=== PATIENT | female | born 1955 | race Caucasian/White ===

== ENCOUNTER 2018-04-16 19:38 | Emergency (ER) | payer OTHER, MEDICAID ==
[2018-04-16 20:30] LABS: ADD MAN DIFF? NO
[2018-04-16 20:31] LABS: WHITE BLOOD COUNT 5.6 10^3/ul (4.8-10.8)
[2018-04-16 20:31] LABS: ABNORMAL IP MESSAGE 1; BASOPHILS % 0.5 % (0.0-2.0); EOSINOPHILS # 0.1 10^3/ul (0.0-0.5); EOSINOPHILS % 2.3 % (0.0-7.0); HEMATOCRIT 37.8 % (37.0-47.0); HEMOGLOBIN 12.7 g/dl (12.0-16.0); LYMPHOCYTES # 1.8 10^3/ul (0.8-2.9); LYMPHOCYTES % 32.1 % (15.0-51.0); MEAN CORPUSCULAR HEMOGLOBIN 30.7 pg (29.0-33.0); MEAN CORPUSCULAR HGB CONC 33.6 g/dl (32.0-37.0); MEAN CORPUSCULAR VOLUME 91.3 fl (82.0-101.0); MEAN PLATELET VOLUME 10.7 fl (7.4-10.4); MONOCYTE # 0.5 10^3/ul (0.3-0.9); MONOCYTES % 8.8 % (0.0-11.0); NEUTROPHIL # 3.1 10^3/ul (1.6-7.5); NEUTROPHILS % 55.9 % (39.0-77.0); PLATELET COUNT 93 10^3/UL (140-415); RED BLOOD COUNT 4.14 10^6/ul (4.20-5.40); RED CELL DISTRIBUTION WIDTH 13.6 % (11.5-14.5)
[2018-04-16 20:34] LABS: POSITIVE DIFF @See below
[2018-04-16] MEDS: ONDANSETRON 4 MG INJ IV (20:37)
[2018-04-16] MEDS: morphine 4 MG/ML VIAL IV (20:38)
[2018-04-16 20:48] LABS: ALANINE AMINOTRANSFERASE 42 IU/L (13-69); ALBUMIN/GLOBULIN RATIO 0.93; ALKALINE PHOSPHATASE 89 IU/L (42-121); ANION GAP 9 (5-13); ASPARTATE AMINO TRANSFERASE 45 IU/L (15-46); BILIRUBIN,INDIRECT 0.5 mg/dl (0-1.1); BILIRUBIN,TOTAL 0.5 mg/dl (0.2-1.3); BLOOD UREA NITROGEN 10 mg/dl (7-20); CALCIUM 8.7 mg/dl (8.4-10.2); CARBON DIOXIDE 28 mmol/L (21-31); CHLORIDE 106 mmol/L (97-110); CREATININE 0.57 mg/dl (0.44-1.00); Estimated GFR > 60 mL/min (>60); GLUCOSE 143 mg/dl (70-220); LIPASE 252 U/L (23-300); POTASSIUM 3.7 mmol/L (3.5-5.1); SODIUM 143 mmol/L (135-144); TOTAL PROTEIN 8.3 g/dl (6.1-8.1)
[2018-04-16 21:00] LABS: TROPONIN-I < 0.012 ng/ml (0.000-0.120)
[2018-04-16 21:12] LABS: ADD UMIC YES; UR ASCORBIC ACID NEGATIVE (NEGATIVE); UR BACTERIA FEW /HPF (NONE SEEN); UR BILIRUBIN (Dip) NEGATIVE (NEGATIVE); UR BLOOD (Dip) 1+ mg/dL (NEGATIVE); UR CALCIUM OXALATE CRYSTAL MANY /HPF (NONE SEEN); UR CLARITY SLIGHTLY CLOUDY (CLEAR); UR COLOR YELLOW (YELLOW); UR GLUCOSE (Dip) NEGATIVE (NEGATIVE); UR KETONES (Dip) NEGATIVE (NEGATIVE); UR LEUKOCYTE ESTERASE (Dip) NEGATIVE Leu/ul (NEGATIVE); UR MUCUS FEW /HPF (NONE SEEN); UR NITRITE (Dip) NEGATIVE (NEGATIVE); UR RBC 9 /HPF (0-5); UR SQUAMOUS EPITHELIAL CELL FEW /HPF (FEW); UR TOTAL PROTEIN (Dip) 1+ mg/dl (NEGATIVE); UR UROBILINOGEN (Dip) 2+ mg/dL (NEGATIVE); UR WBC 8 /HPF (0-5)
== END 2018-04-16 23:50 | disposition home or self-care (01) ==
LOC: E/R 19:38
DX: R10.84 Generalized abdominal pain (principal); M54.5 Low back pain; I10 Essential (primary) hypertension; Z79.82 Long term (current) use of aspirin
CPT/HCPCS: 36415; 74176; 80053; 81001; 83690; 84484; 85025; 93005; 96374; 96375; 99285-25

== ENCOUNTER 2018-07-18 11:49 | Emergency (ER) | payer BC, MEDICAID ==
[2018-07-18] MEDS: HYDROmorphONE 1 MG/ML SYG IV (13:08)
[2018-07-18] MEDS: ONDANSETRON 4 MG INJ IV (13:08)
[2018-07-18 13:15] LABS: ADD MAN DIFF? NO
[2018-07-18 13:23] LABS: WHITE BLOOD COUNT 4.9 10^3/ul (4.8-10.8)
[2018-07-18 13:23] LABS: ABNORMAL IP MESSAGE 1; BASOPHILS % 0.8 % (0.0-2.0); EOSINOPHILS # 0.1 10^3/ul (0.0-0.5); EOSINOPHILS % 1.8 % (0.0-7.0); HEMATOCRIT 40.2 % (37.0-47.0); HEMOGLOBIN 13.5 g/dl (12.0-16.0); LYMPHOCYTES # 1.9 10^3/ul (0.8-2.9); LYMPHOCYTES % 37.7 % (15.0-51.0); MEAN CORPUSCULAR HEMOGLOBIN 31.2 pg (29.0-33.0); MEAN CORPUSCULAR HGB CONC 33.6 g/dl (32.0-37.0); MEAN CORPUSCULAR VOLUME 92.8 fl (82.0-101.0); MEAN PLATELET VOLUME 11.6 fl (7.4-10.4); MONOCYTE # 0.5 10^3/ul (0.3-0.9); MONOCYTES % 9.5 % (0.0-11.0); NEUTROPHIL # 2.5 10^3/ul (1.6-7.5); NEUTROPHILS % 49.8 % (39.0-77.0); PLATELET COUNT 70 10^3/UL (140-415); RED BLOOD COUNT 4.33 10^6/ul (4.20-5.40); RED CELL DISTRIBUTION WIDTH 13.8 % (11.5-14.5)
[2018-07-18 13:24] LABS: POSITIVE DIFF @See below
[2018-07-18 13:39] LABS: ALANINE AMINOTRANSFERASE 50 IU/L (13-69); ALBUMIN 4.1 g/dl (3.3-4.9); ALBUMIN/GLOBULIN RATIO 0.87; ALKALINE PHOSPHATASE 94 IU/L (42-121); ANION GAP 10 (5-13); ASPARTATE AMINO TRANSFERASE 63 IU/L (15-46); BILIRUBIN,INDIRECT 0.5 mg/dl (0-1.1); BILIRUBIN,TOTAL 0.5 mg/dl (0.2-1.3); BLOOD UREA NITROGEN 11 mg/dl (7-20); CALCIUM 9.2 mg/dl (8.4-10.2); CARBON DIOXIDE 27 mmol/L (21-31); CHLORIDE 107 mmol/L (97-110); CREATININE 0.66 mg/dl (0.44-1.00); Estimated GFR > 60 mL/min (>60); GLUCOSE 93 mg/dl (70-220); LIPASE 330 U/L (23-300); POTASSIUM 3.7 mmol/L (3.5-5.1); SODIUM 144 mmol/L (135-144); TOTAL PROTEIN 8.8 g/dl (6.1-8.1)
== END 2018-07-18 16:44 | disposition home or self-care (01) ==
LOC: E/R 11:49
DX: K80.50 Calculus of bile duct without cholangitis or cholecystitis without obstruction (principal); I10 Essential (primary) hypertension
CPT/HCPCS: 36415; 76705; 80053; 83690; 85025; 96374; 96375; 99285-25

== ENCOUNTER 2018-09-09 07:47 | Emergency (ER) | payer OTHER ==
[2018-09-09] MEDS: ONDANSETRON (ODT) 4 MG TAB ODT (09:25)
[2018-09-09] MEDS: KETOROLAC 30 MG INJ IM (09:26)
== END 2018-09-09 10:36 | disposition home or self-care (01) ==
LOC: FTE 10:36
DX: J06.9 Acute upper respiratory infection, unspecified (principal); I10 Essential (primary) hypertension; E11.9 Type 2 diabetes mellitus without complications; Z79.84 Long term (current) use of oral hypoglycemic drugs
CPT/HCPCS: 96372; 99284-25

== ENCOUNTER 2018-12-23 06:56 | Observation (INO) | payer OTHER ==
[2018-12-23 07:34] LABS: ADD MAN DIFF? NO
[2018-12-23] MEDS: ASPIRIN 325 MG TAB PO (07:37)
[2018-12-23] MEDS: NITROGLYCERIN (SL) 0.4 MG TAB SL ×2 (07:37→19:57)
[2018-12-23 07:39] LABS: WHITE BLOOD COUNT 6.4 10^3/ul (4.8-10.8)
[2018-12-23 07:39] LABS: ABNORMAL IP MESSAGE 1; BASOPHIL # 0.1 10^3/ul (0.0-0.1); BASOPHILS % 0.8 % (0.0-2.0); EOSINOPHILS # 0.2 10^3/ul (0.0-0.5); EOSINOPHILS % 2.5 % (0.0-7.0); HEMATOCRIT 41.3 % (37.0-47.0); HEMOGLOBIN 13.5 g/dl (12.0-16.0); LYMPHOCYTES % 32.1 % (15.0-51.0); MEAN CORPUSCULAR HEMOGLOBIN 30.8 pg (29.0-33.0); MEAN CORPUSCULAR HGB CONC 32.7 g/dl (32.0-37.0); MEAN CORPUSCULAR VOLUME 94.1 fl (82.0-101.0); MEAN PLATELET VOLUME 10.3 fl (7.4-10.4); MONOCYTE # 0.6 10^3/ul (0.3-0.9); MONOCYTES % 9.6 % (0.0-11.0); NEUTROPHIL # 3.5 10^3/ul (1.6-7.5); NEUTROPHILS % 54.5 % (39.0-77.0); PLATELET COUNT 80 10^3/UL (140-415); RED BLOOD COUNT 4.39 10^6/ul (4.20-5.40); RED CELL DISTRIBUTION WIDTH 13.9 % (11.5-14.5)
[2018-12-23 07:40] LABS: POSITIVE DIFF @See below
[2018-12-23 07:57] LABS: ALANINE AMINOTRANSFERASE 46 IU/L (13-69); ALBUMIN 3.9 g/dl (3.3-4.9); ALBUMIN/GLOBULIN RATIO 0.88; ALKALINE PHOSPHATASE 89 IU/L (42-121); ANION GAP 6 (5-13); ASPARTATE AMINO TRANSFERASE 49 IU/L (15-46); BILIRUBIN,INDIRECT 0.9 mg/dl (0-1.1); BILIRUBIN,TOTAL 0.9 mg/dl (0.2-1.3); BLOOD UREA NITROGEN 18 mg/dl (7-20); CALCIUM 9.2 mg/dl (8.4-10.2); CARBON DIOXIDE 28 mmol/L (21-31); CHLORIDE 108 mmol/L (97-110); CREATININE 0.58 mg/dl (0.44-1.00); Estimated GFR > 60 mL/min (>60); GLUCOSE 150 mg/dl (70-220); LIPASE 262 U/L (23-300); SODIUM 142 mmol/L (135-144); TOTAL PROTEIN 8.3 g/dl (6.1-8.1)
[2018-12-23 08:08] LABS: TROPONIN-I < 0.012 ng/ml (0.000-0.120)
[2018-12-23] MEDS ORDERED: DOCUSATE SODIUM 100 MG CAP PO (09:00)
[2018-12-23] MEDS ORDERED: ACETAMINOPHEN 325 MG TAB PO (09:00)
[2018-12-23] MEDS ORDERED: BISACODYL (EC) 5 MG TAB PO (09:00)
[2018-12-23] MEDS ORDERED: ONDANSETRON 4 MG INJ IV ×2 (09:00)
[2018-12-23] MEDS ORDERED: NACL 0.9% 3 ML SYG IV (09:00)
[2018-12-23] MEDS ORDERED: ZOLPIDEM 5 MG TAB PO (09:00)
[2018-12-23] MEDS ORDERED: HYDROCODONE/APAP (5/325) TAB PO (09:00)
[2018-12-23] MEDS: FAMOTIDINE 20 MG INJ IV ×2 (09:07→20:22)
[2018-12-23] MEDS: ENOXAPARIN 40 MG/0.4 ML SYG SC (09:08)
[2018-12-23 09:18] LABS: INR 1.08; PROTIME 14.1 Sec (11.9-14.9); PT RATIO 1.1
[2018-12-23] MEDS: morphine 2 MG INJ IV (12:05)
[2018-12-23 13:43] LABS: CREATINE KINASE 70 IU/L (23-200)
[2018-12-23 13:54] LABS: CK INDEX 0.8; CK-MB 0.57 ng/ml (0.0-2.4); TROPONIN-I < 0.012 ng/ml (0.000-0.120)
[2018-12-23] MEDS: ACETAMINOPHEN 325 MG TAB PO (19:58)
[2018-12-24] MEDS: morphine 2 MG INJ IV (01:51)
[2018-12-24 06:57] LABS: ADD MAN DIFF? NO
[2018-12-24 07:03] LABS: WHITE BLOOD COUNT 4.3 10^3/ul (4.8-10.8)
[2018-12-24 07:03] LABS: ABNORMAL IP MESSAGE 1; BASOPHILS % 0.5 % (0.0-2.0); EOSINOPHILS # 0.1 10^3/ul (0.0-0.5); EOSINOPHILS % 2.1 % (0.0-7.0); HEMATOCRIT 40.9 % (37.0-47.0); HEMOGLOBIN 13.4 g/dl (12.0-16.0); LYMPHOCYTES # 1.7 10^3/ul (0.8-2.9); LYMPHOCYTES % 38.5 % (15.0-51.0); MEAN CORPUSCULAR HEMOGLOBIN 30.7 pg (29.0-33.0); MEAN CORPUSCULAR HGB CONC 32.8 g/dl (32.0-37.0); MEAN CORPUSCULAR VOLUME 93.6 fl (82.0-101.0); MEAN PLATELET VOLUME 10.9 fl (7.4-10.4); MONOCYTE # 0.3 10^3/ul (0.3-0.9); MONOCYTES % 7.1 % (0.0-11.0); NEUTROPHIL # 2.2 10^3/ul (1.6-7.5); NEUTROPHILS % 51.3 % (39.0-77.0); PLATELET COUNT 69 10^3/UL (140-415); RED BLOOD COUNT 4.37 10^6/ul (4.20-5.40); RED CELL DISTRIBUTION WIDTH 13.7 % (11.5-14.5)
[2018-12-24 07:28] LABS: ALANINE AMINOTRANSFERASE 56 IU/L (13-69); ALBUMIN 3.6 g/dl (3.3-4.9); ALBUMIN/GLOBULIN RATIO 0.87; ALKALINE PHOSPHATASE 84 IU/L (42-121); ANION GAP 5 (5-13); ASPARTATE AMINO TRANSFERASE 69 IU/L (15-46); BLOOD UREA NITROGEN 17 mg/dl (7-20); CALCIUM 8.8 mg/dl (8.4-10.2); CARBON DIOXIDE 27 mmol/L (21-31); CHLORIDE 107 mmol/L (97-110); CHOL/HDL RATIO 3.2 RATIO; CHOLESTEROL 158 mg/dl (100-200); CREATININE 0.55 mg/dl (0.44-1.00); Estimated GFR > 60 mL/min (>60); GLUCOSE 117 mg/dl (70-220); HDL CHOLESTEROL 49 mg/dl (35-98); LDL CHOLESTEROL,CALCULATED 82 mg/dl; MAGNESIUM 1.8 mg/dl (1.7-2.5); POTASSIUM 3.9 mmol/L (3.5-5.1); SODIUM 139 mmol/L (135-144); TOTAL PROTEIN 7.7 g/dl (6.1-8.1); TRIGLYCERIDES 135 mg/dl (0-149)
[2018-12-24 07:31] LABS: TROPONIN-I < 0.012 ng/ml (0.000-0.120)
[2018-12-24 07:33] LABS: POSITIVE DIFF @See below
[2018-12-24 07:41] LABS: HEMOGLOBIN A1C 6.5 % (0-5.9)
[2018-12-24] MEDS: REGADENOSON 0.4 MG/5 ML SYG (10:00)
[2018-12-24] MEDS: FAMOTIDINE 20 MG INJ IV (13:14)
[2018-12-24] MEDS: AMLODIPINE 5 MG TAB PO (13:14)
[2018-12-24] MEDS: ASPIRIN (EC) 81 MG TAB PO (13:14)
[2018-12-24] MEDS: ENOXAPARIN 40 MG/0.4 ML SYG SC (13:22)
[2018-12-24] MEDS ORDERED: ATORVASTATIN 20 MG TAB PO (21:00)
== END 2018-12-24 19:20 | disposition home or self-care (01) ==
LOC: E/R 06:56 → TEL 10:12
DX: R07.9 Chest pain, unspecified (principal); I10 Essential (primary) hypertension; E11.9 Type 2 diabetes mellitus without complications; E66.9 Obesity, unspecified; Z68.38 Body mass index [BMI] 38.0-38.9, adult
CPT/HCPCS: 36415; 71045; 78452; 80053; 80061; 82550; 82553; 83036; 83690; 83735; 84100; 84443; 84484; 85025; 85610; 93005; 93017; 93306; 93970; 99285-25; G0378